=== PATIENT | female | born 1995 | race Caucasian/White ===

== ENCOUNTER → 2016-09-09 | Outpatient (CLI) | payer OTHER ==
--- NOTE | 2016-09-09 15:46 | DI ---
Wrist trauma history. 4 view study. Findings: Bony structures are intact. The radiocarpal junction is normal. Ulnar styloid is intact and the carpal ossicles appear normal. Impression: Unremarkable 4 view right wrist study
--- NOTE | 2016-09-09 15:48 | DI ---
History: Trauma. 4 view examination Prior study: None. Findings: Bony structures are intact. No fracture or dislocation observed. Impression: Unremarkable 4 view right hand study
== END ==
LOC: MOB RAD 07:48
PROVIDERS: ATTEND Physician Assistant
DX: M25.531 Pain in right wrist (principal); M79.641 Pain in right hand; S63.501A Unspecified sprain of right wrist, initial encounter; W00.0XXA Fall on same level due to ice and snow, initial encounter
CPT/HCPCS: 73110; 73130